=== PATIENT | male | born 2000 | race Caucasian/White ===

== ENCOUNTER 2019-11-02 11:31 | Emergency (ER) | payer OTHER ==
[~2019-11-02] VITALS: Ht 175.3 cm; Wt 72.1 kg
[2019-11-02 11:40] VITALS: BP 113/65; Ht 175.3 cm; Wt 72.1 kg
== END 2019-11-02 13:01 | disposition other institution (70) ==
LOC: ED 11:31
DX: Z02.89 Encounter for other administrative examinations (principal)

== ENCOUNTER 2020-08-18 11:03 | Emergency (ER) | payer OTHER, MEDICAID ==
[~2020-08-18] VITALS: Ht 175.3 cm; Wt 68.5 kg
[2020-08-18 17:10] VITALS: BP 128/86
== END 2020-08-18 17:10 | disposition home or self-care (01) ==
LOC: ED 11:03
DX: M54.2 Cervicalgia (principal); M54.9 Dorsalgia, unspecified; F41.9 Anxiety disorder, unspecified; F12.10 Cannabis abuse, uncomplicated; Z91.013 Allergy to seafood; Z98.890 Other specified postprocedural states; V49.9XXA Car occupant (driver) (passenger) injured in unspecified traffic accident, initial encounter; Y93.I9 Activity, other involving external motion; Y92.413 State road as the place of occurrence of the external cause; Y99.8 Other external cause status